=== PATIENT | female | born 1955 | race Caucasian/White ===

== ENCOUNTER 2021-12-17 08:45 | Observation (INO) ==
[2022-01-02] MEDS ORDERED: Lactated Ringers 1000 ml BAG 1,000 ML IV SCH (06:00)
[2022-01-02] MEDS ORDERED: Buffered Lidocaine 1% SYRIN 1 ml INTRADERM ONE (06:00)
[2022-01-02] MEDS ORDERED: Clindamycin 900 MG/D5W BAG 900 MG/50 ML BAG IVPB ONE (07:31)
[2022-01-02] MEDS ORDERED: Propofol 10 MG/ML 20 ML BTL ONE (08:00)
[2022-01-02] MEDS ORDERED: Midazolam 2 mg/2 ml VIAL 1 mg/ml 2 ml VIAL (2 mg) ONE (08:00)
[2022-01-02] MEDS ORDERED: Lidocaine 2% PF 5 ML VIAL ONE (08:00)
[2022-01-02] MEDS ORDERED: Magnesium Hydroxide LIQ 30 ML UDC PO PRN (08:38)
[2022-01-02] MEDS ORDERED: Ondansetron ODT 4 mg TAB 4 MG TAB PO PRN (08:38)
[2022-01-02] MEDS ORDERED: diPHENhydraMINE 25 mg TAB PO PRN (08:38)
[2022-01-02] MEDS ORDERED: Morphine 2 MG/ML SYRINGE IV PRN (08:38)
[2022-01-02] MEDS ORDERED: Lactulose 30 ml UDC PO PRN (08:38)
[2022-01-02] MEDS ORDERED: Ondansetron 4 mg VIAL 2 MG/ML 2 ml VIAL IV PRN ×2 (08:38→08:47)
[2022-01-02] MEDS ORDERED: diPHENhydraMINE IV 50 MG/ML 1 ml VIAL (BENADRYL) IV PRN (08:38)
[2022-01-02] MEDS ORDERED: Phenylephrine 40 mcg/mL 10mL (400mcg) SYRINGE ONE (08:46)
[2022-01-02] MEDS ORDERED: fentaNYL 100 mcg/2 ml 50 MCG/ML VIAL IV PRN (08:47)
[2022-01-02] MEDS ORDERED: DiMENhydriNATE IV 50 mg/ml 1 ml VIAL IV PUSH PRN (08:47)
[2022-01-02] MEDS ORDERED: Acetaminophen IV 1 GM/100ML 100 ML IV PRN (08:47)
[2022-01-02] MEDS ORDERED: HYDROmorphone 1 MG/1 ML SYRINGE IV PRN (08:47)
[2022-01-02] MEDS ORDERED: Naloxone 0.4 mg VIAL 0.4 mg/ml 1 ml VIAL IV PRN (08:47)
[2022-01-02] MEDS ORDERED: Clindamycin 600 MG/D5W BAG 600 MG/50 ML BAG IV SCH (09:00)
[2022-01-02] MEDS ORDERED: Phenylephrine IV 10 MG/ML 1 ml VIAL ONE (09:07)
[2022-01-02] MEDS ORDERED: Glycopyrrolate IV 0.2 MG/ML 1 ML VIAL ONE (09:42)
[2022-01-02] MEDS ORDERED: fentaNYL 100 mcg/2 ml 50 MCG/ML VIAL ONE (11:22)
[2022-01-02] MEDS: Lactated Ringers 1000 ml BAG 1,000 ML IV SCH ×2 (12:20→22:08)
[2022-01-02] MEDS: Magnesium Hydroxide LIQ 30 ML UDC PO SCH ×2 (12:33→20:57)
[2022-01-02] MEDS: Vitamin THERAPEUTIC TAB PO SCH (12:33)
[2022-01-02] MEDS ORDERED: Lactated Ringers 1000 ml BAG 500 ML IV ONE (15:17)
[2022-01-02] MEDS: Clindamycin 600 MG/D5W BAG 600 MG/50 ML BAG IV SCH (16:30)
[2022-01-03] MEDS: Clindamycin 600 MG/D5W BAG 600 MG/50 ML BAG IV SCH ×2 (00:40→10:06)
[2022-01-03 06:54] LABS: Calcium 8.8 mg/dL (8.6-10.3); eGFR CKD-EPI 94.8 (>60)
[2022-01-03 07:21] LABS: Hematocrit 35 % (35-47); Hemoglobin 11.7 g/dL (12.0-16.0); Platelet Count 188 10^3/uL (150-450)
[2022-01-03 07:25] LABS: Mean Platelet Volume 8.9 fL (7.4-10.4)
[2022-01-03] MEDS: Vitamin THERAPEUTIC TAB PO SCH (07:40)
[2022-01-03] MEDS: Magnesium Hydroxide LIQ 30 ML UDC PO SCH (07:40)
[2022-01-03 11:32] VITALS: BP 102/55
== END 2022-01-03 13:10 | disposition home or self-care (01) ==
LOC: AA 01-02 07:09 → INTOOBSV 01-02 07:09 → SSU 01-02 12:18
PROVIDERS: ADMIT Orthopaedic Surgery Adult Reconstructive Orthopaedic Surgery; ATTEND Orthopaedic Surgery Adult Reconstructive Orthopaedic Surgery